=== PATIENT | male | born 1970 | race Hispanic/Latino ===

== ENCOUNTER 2024-01-30 02:56 | Emergency (ER) | payer OTHER ==
[~2024-01-30 02:56] MED LIST: DOXY100T2 PO; SULF1TAB42 PO; TYL3 PO
[2024-01-30] MEDS ORDERED: LACTATED RINGERS 1000ML 1,000 ML IV ONE (03:00)
[2024-01-30 03:13] LABS: BASOPHILS # (AUTO) 0.03 K/uL (0.00-0.20); BASOPHILS % (AUTO) 0.5 % (0.0-5.0); EOSINOPHILS # (AUTO) 0.01 K/uL (0.00-0.70); EOSINOPHILS % (AUTO) 0.2 % (0.0-8.0); HEMATOCRIT 39.4 % (42-54); IMMATURE GRANULOCYTE ABSOLUTE 0.02 K/uL (0-1); LYMPHOCYTES # (AUTO) 1.3 K/uL (1.0-4.8); LYMPHOCYTES % (AUTO) 21.3 % (21.0-51.0); MEAN CORPUSCULAR HEMOGLOBIN 31.5 pg (27.0-33.0); MEAN CORPUSCULAR HGB CONC 35.8 g/dL (32.0-36.0); MEAN CORPUSCULAR VOLUME 87.9 fL (79-99); MONOCYTES # (AUTO) 0.3 K/uL (0.1-1.0); MONOCYTES % (AUTO) 5.6 % (3.0-13.0); NEUTROPHILS # (AUTO) 4.3 K/uL (1.8-7.7); NEUTROPHILS % (AUTO) 72.1 % (40.0-77.0); PLATELET COUNT (AUTO) 178 K/uL (130-400); RED BLOOD CELL COUNT(AUTO) 4.48 MIL/uL (4.50-6.20); RED CELL DISTRIBUTION WIDTH 11.9 % (11.0-15.5); WHITE BLOOD COUNT (AUTO) 5.9 K/uL (4.8-10.8)
[2024-01-30] MEDS: 0.9%NACL 1000ML 1,000 ML IV ONE (03:16)
[2024-01-30 03:24] LABS: INR <= 0.93 (0.85-1.15); PROTHROMBIN TIME 10.7 SEC (9.6-11.6)
[2024-01-30 03:26] LABS: PARTIAL THROMBOPLASTIN TIME 24.2 SEC (26.3-35.5)
[2024-01-30 03:37] LABS: POTASSIUM 3.1 mmol/L (3.5-5.1)
[2024-01-30 03:45] LABS: CREATININE 0.8 mg/dL (0.5-1.3)
[2024-01-30 04:36] LABS: AMPHET/METH SCREEN,URINE NEGATIVE (NEGATIVE); BARBITURATE SCREEN, URINE NEGATIVE (NEGATIVE); BENZODIAZEPINES SCREEN,URINE NEGATIVE (NEGATIVE); CANNABINOID SCREEN,URINE NEGATIVE (NEGATIVE); COCAINE SCREEN,URINE POSITIVE (NEGATIVE); OPIATE SCREEN,URINE NEGATIVE (NEGATIVE); PHENCYCLIDINE SCREEN,URINE NEGATIVE (NEGATIVE)
[2024-01-30] MEDS: POTASSIUM BICARB/CIT AC 25 MEQ TABLET.EFF PO ONE (05:31)
[2024-01-30 05:35] VITALS: BP 105/71; PULSE 61; RESP 19; O2SAT 97
== END 2024-01-30 05:40 | disposition home or self-care (01) ==
LOC: EDH 02:56
DX: F10.129 Alcohol abuse with intoxication, unspecified (principal); E87.6 Hypokalemia; F14.10 Cocaine abuse, uncomplicated; I10 Essential (primary) hypertension; Z79.899 Other long term (current) drug therapy; Y90.3 Blood alcohol level of 60-79 mg/100 ml
CPT/HCPCS: 99284; 84484; 80048; 80305; 85025; 85610; 85730; 36415; 93005; J7120; J7030

== ENCOUNTER → 2025-09-14 | Outpatient (CLI) | payer OTHER ==
--- NOTE | 2025-09-17 14:30 | HMCIMG ---
THREE VIEW LEFT WRIST RADIOGRAPH CLINICAL HISTORY: LT WRIST RECONSTRUCTION COMPARISON: None FINDINGS: There is osteopenia of the osseous structure. No acute displaced fracture, dislocation or discrete bony destructive lesion is noted. There is orthopedic screws seen the base of the left fifth metacarpal. There are 3 orthopedic screws seen in the distal left radius. IMPRESSION: Status post ORIF of the distal left radius and the base of the fifth metacarpal. No acute fracture or dislocation. Osteopenia
== END | disposition home or self-care (01) ==
LOC: RAH 15:19
PROVIDERS: ATTEND Internal Medicine
DX: M85.832 Other specified disorders of bone density and structure, left forearm (principal); M25.832 Other specified joint disorders, left wrist
CPT/HCPCS: 73100